=== PATIENT | female | born 1975 | race African-American/Black ===

== ENCOUNTER 2018-02-17 09:04 | Emergency (ER) | payer SELFPAY ==
[~2018-02-17] VITALS: Ht 157.5 cm; Wt 51.0 kg
[2018-02-17] MEDS ORDERED: IBUPROFEN 600MG TABLET PO ONE (12:00)
[2018-02-17 12:08] VITALS: BP 169/124
== END 2018-02-17 13:11 | disposition home or self-care (01) ==
LOC: ER 09:04
DX: S39.012A Strain of muscle, fascia and tendon of lower back, initial encounter (principal); I10 Essential (primary) hypertension; F17.200 Nicotine dependence, unspecified, uncomplicated; V43.62XA Car passenger injured in collision with other type car in traffic accident, initial encounter; Y93.89 Activity, other specified; Y92.488 Other paved roadways as the place of occurrence of the external cause
CPT/HCPCS: 99282